=== PATIENT | female | born 1955 | race American Indian/Alaskan Native ===

== ENCOUNTER 2017-07-08 18:08 | Emergency (ER) | payer OTHER ==
[~2017-07-08] VITALS: Ht 157.5 cm; Wt 99.3 kg
[2017-07-08] MEDS ORDERED: CHANTIX1 MG PO (18:33)
[2017-07-08] MEDS ORDERED: LEVOTHYROXINE175 MCG PO (18:34)
[2017-07-08] MEDS ORDERED: CITALOPRAM HBR40 MG PO (18:34)
[2017-07-08] MEDS ORDERED: CYCLOBENZAPRINE10 MG PO ×2 (18:34→19:26)
[2017-07-08] MEDS ORDERED: NAPROSYN500 MG PO (19:26)
== END 2017-07-08 19:40 | disposition home or self-care (01) ==
LOC: ED 18:08
DX: M54.5 Low back pain (principal); F17.200 Nicotine dependence, unspecified, uncomplicated; E03.9 Hypothyroidism, unspecified; J44.9 Chronic obstructive pulmonary disease, unspecified; Z91.038 Other insect allergy status; Z79.899 Other long term (current) drug therapy; Z98.890 Other specified postprocedural states
CPT/HCPCS: 96372; 99283; J1885

== ENCOUNTER 2019-11-27 20:58 | Emergency (ER) | payer MEDICARE, OTHER, MEDICAID ==
[~2019-11-27] VITALS: Ht 157.5 cm; Wt 99.3 kg
[~2019-11-27 20:58] MED LIST: CHANTIX1 MG PO; CITALOPRAM HBR40 MG PO; CLARITIN10 M2 PO; CYCLOBENZAPRINE10 MG PO; FEXOFENADINE H180 MG PO; FUROSEMIDE20 MG PO; IBUPROFEN800 MG PO; LEVOTHYROXINE175 MCG PO; NAPROSYN500 MG PO; PROAIR RESPICL90 MCG INH; VITAMIN D31000 UNI1 PO
[2019-11-27] MEDS ORDERED: WELLBUTRIN SR100 MG PO (21:14)
== END 2019-11-27 21:37 | disposition home or self-care (01) ==
LOC: ED 20:58
DX: S93.601A Unspecified sprain of right foot, initial encounter (principal); E03.9 Hypothyroidism, unspecified; J44.9 Chronic obstructive pulmonary disease, unspecified; F17.200 Nicotine dependence, unspecified, uncomplicated; Z91.030 Bee allergy status; Z79.899 Other long term (current) drug therapy; W22.8XXA Striking against or struck by other objects, initial encounter
CPT/HCPCS: 73630; 99283-25

== ENCOUNTER 2023-03-24 12:30 | Emergency (ER) | payer MEDICARE, OTHER ==
[~2023-03-24] VITALS: Ht 157.5 cm; Wt 90.7 kg
[~2023-03-24 12:30] MED LIST changes: +WELLBUTRIN SR100 MG PO
[2023-03-24] MEDS ORDERED: HYDROCODON-ACE1 EA10 PO (18:56)
[2023-03-24] MEDS ORDERED: NEOMYCIN-POLYMY10 M1 OTIC (18:56)
[2023-03-24 19:02] VITALS: BP 153/74
== END 2023-03-24 19:02 | disposition home or self-care (01) ==
LOC: ED 12:30
DX: H60.91 Unspecified otitis externa, right ear (principal); J44.9 Chronic obstructive pulmonary disease, unspecified; E03.9 Hypothyroidism, unspecified; F17.200 Nicotine dependence, unspecified, uncomplicated; Z91.030 Bee allergy status; Z79.899 Other long term (current) drug therapy
CPT/HCPCS: 99282; 99406

== ENCOUNTER 2023-08-29 08:50 | Day surgery (SDC) | payer MEDICARE, OTHER, MEDICAID ==
[2023-08-28 13:54] VITALS: BP 1436/86
[~2023-08-29] VITALS: Ht 157.5 cm; Wt 99.0 kg
[~2023-08-29 08:50] MED LIST changes: +ATORVASTATIN CA20 MG PO; +HYDROCODON-ACE1 EA10 PO; +LEVOTHYROXINE200 MC2 PO; +LISINOPRIL10 MG PO; +MULTI VITAMIN1 EACH PO; +NEOMYCIN-POLYMY10 M1 OTIC; +SPIRIVA RESPIMAT4 G1 INH
[2023-08-29 09:11] VITALS: BP 158/79
[2023-08-29] MEDS ORDERED: CYCLOBENZAPRINE10 MG PO (09:16)
--- NOTE | 2023-08-29 12:40 | NUR ---
08/29/23 1240 Amparo Lo 1211- PT ARRIVES TO PACU, ALERT BUT DROWSY SITTING IN SEMI MENDIOLA POSITION. INITIALLY PT O2 SATS 85% ON ROOM AIR, PT NORMALLY ON2L O2 AT NIGHT, PLACED 2L O2 PER NC AND PT SATS INCREASED TO LOW 90'S. GAUZE AND TAPE TO RIGHT CLAVICLE SURGICAL SITE, CDI, MELANI DRAIN IN PLACE WITH SANGINOUS DRAINAGE. ALL MONITORS IN PLACE. 1215- CONTINUE TO MONITOR PT, RESTING INTERMITTENTLY. PT ASKING FOR WATER, TOLERATING WELL. PT DENIES PAIN AND NAUSEA. 1225- PT CONTINUES TO HAVE NO COMPLAINTS. ICE PLACED TO SURERY SITE. PT RESTING INTERMITTENTLY. SNORES WHEN FALLS ASLEEP, PT WAKES SELF. 1239- PT CONTINUES TO REST, NO SIGNS OF DISTRESS. GOWN CHANGED DUE TO BLOOD FROM OR.
[2023-08-29 13:13] VITALS: BP 146/65
--- NOTE | 2023-08-29 13:17 | NUR ---
LE 1310 PATIENT BACK TO ROOM 2. VITAL SIGNS COMPLETE. PATIENT DROWSY WITH CPAP ON. ORIENTED. BREATHING EQUAL AND UNLABORED WITH OXYGEN SATURATIONS ABOVE 90%. PATIENT DENIES PAIN AT THIS TIME. PATIENT DENIES BEING NAUSEATED. PATIENT SURGICAL SITE CLEAN, DRY AND INTACT. IVF INFUSING. SCD'S ON. PATIENT DRINKING WATER. CALL LIGHT WITHIN REACH NO FUTHER NEEDS. NO QUESTIONS AT THIS TIME.
[2023-08-29 14:09] VITALS: BP 125/64
--- NOTE | 2023-08-29 14:39 | NUR ---
LE 1345 PATIENT TITRATED OFF THE CPAP. PATIENT DROWSY BUT ORIENTED. PATIENT BREATHING EQUAL AND UNLABORED. OXYGEN SATURATIONS ABOVE 90%. PATIENT DENIES ANY PAIN OR BEING NAUSEATED. PATIENT SURGICAL SITE CLEAN, DRY AND INTACT. IVF INFUSING. SCD'S ON. PATIENT DRINKING WATER AND EATING JELLO. CALL LIGHT WITHIN REACH NO FUTHER NEEDS. NO QUESITIONS AT THIS TIME. LE 1410 PATIENT ALERT AND ORIENTED. BREATHING EQUAL AND UNLABORED. OXYGEN SATURATIONS ABOVE 90% ON ROOM AIR. PATIENT DENIES PAIN OR BEING NAUSEATED. SURGICAL CLEAN, DRY AND INTACT. LE 1430 PATIENT HAS MET DISCHARGE CRITERIA. PATIENT GIVEN DISCHARGE INSTRUCTIONS. NO QUESTIONS AT THIS TIME. PATIENT IV D/C'D WNL. PATIENT WAS WHEELED OUT OF FACILITY NO FUTHER NEEDS.
--- NOTE | 2023-08-29 15:55 | OR ---
[facility] [address] [place], [place] [address] Signed DATE OF OPERATION: 08/29/2023 SURGEON: Suzan Ch MD PREOPERATIVE DIAGNOSIS: Right midclavicular subcutaneous mass (12 x 12 cm). POSTOPERATIVE DIAGNOSIS: Right midclavicular subcutaneous mass (12 x 12 cm). PROCEDURE: Excision of right midclavicular subcutaneous mass (lipoma). ESTIMATED BLOOD LOSS: 10 mL. INDICATIONS: Prem is a 68-year-old obese female, who has a persistent subcutaneous mass over the mid right clavicle. We saw her in August 2015 for the same mass. At that time, we estimated the mass at about 10 to 15 cm. She thinks it has been getting larger. She decided she wanted to have it removed. She has a fear of going to sleep. She told me she was asleep for her bilateral wrist fractures in her 60s and also after her knee replacement in her 50s and was very difficult to wake up. She ended up in the hospital for several days. It sounds like she had some pulmonary issues. Consequently she was asking if we could do this under straight local. That is a bit difficult particularly due to its size. I told her it would be better at least to have monitored anesthesia care with the local throughout the procedure. I explained to her that most likely this is a lipoma. We would take a fairly respectable incision to get it out completely. We will send it off to the lab for definitive diagnosis. She understands there is risk to the surgery including, but not limited to bleeding, infection, scarring, change in contour of the skin as well as recurrent lipomas in the same or other locations. She had expressed understanding and wished to proceed. DESCRIPTION OF PROCEDURE: I met with Prem and her daughter in our preop area. We all agreed and marked the lesion appropriately. It is quite obvious. After this, she was taken in the operating room and placed in the supine position under monitored anesthesia care. We then rotated her into the reverse Trendelenburg position. She was given preoperative antibiotics along with subcutaneous heparin. SCDs were utilized. She was prepped and draped in the usual sterile fashion. We then used our 3.5 inch spinal needle to inject lidocaine Electronically Signed By: SUZAN CH MD 08/29/23 1555 PATIENT NAME: PREM LUCIA OPERATIVE REPORT DATE OF : 53 REPORT #: [id number] PHYSICIAN: SUZAN CH MD PCP: AMARILYS FLETCHER REPORT IS CONFIDENTIAL AND NOT TO BE RELEASED WITHOUT AUTHORIZATION [facility] [address], [place] [address] Signed mixed with bupivacaine and epinephrine throughout the skin overlying the area. We then injected some around the circumference as well. We used a hockey stick type incision where we followed the oblique incision down the length of the clavicle and then down towards the shoulder just the short distance maybe 2.5 cm. This was developed very carefully with the help of our cautery. We had an additional nurse scrub in to help hold the skin flaps up. We had to inject some additional local as we came underneath and across the pectoralis major muscle. We also came right across the clavicle. It did extend up into the supraclavicular fossa just a short distance. In this way, the entire specimen was removed en bloc and passed off the field. Final specimen is larger than 12 cm. Unfortunately, we forgot to measure it until after it was in the formalin. We will look at that measurement from our pathology department. The wound was then irrigated and suctioned out until clear. We used a #7 flat Daniel drain and we brought it out through the lateral chest wall skin and up into the operative field. We then held in place at the skin level with a 2-0 nylon suture. The dermis was then reapproximated with interrupted 3-0 subcuticular Monocryl sutures. The skin edges were reapproximated with a running 5-0 fast absorbing plain gut suture. Dry gauze and tape was then applied. After this, Prem was transferred over to her hospital bed and taken into recovery room in stable condition. She tolerated the procedure quite well. Suzan Ch MD ALB/MODL /[id number] cc: MD Amarilys Viera Copies: SUZAN CH MD, ELIZABETH ~ Electronically Signed By: SUZAN CH MD 08/29/23 1555 PATIENT NAME: PREM LUCIA OPERATIVE REPORT DATE OF : 53 REPORT #: [id number] PHYSICIAN: SUZAN CH MD PCP: AMARILYS FLETCHER REPORT IS CONFIDENTIAL AND NOT TO BE RELEASED WITHOUT AUTHORIZATION
--- NOTE | 2023-09-03 16:10 | PATH ---
[facility] [address] [facility] [place], [place] [address] Signed SPECIMEN(S): A MID RIGHT CLAVICLE SPECIMEN SOURCE: A. MID RIGHT CLAVICLE CLINICAL HISTORY: Subcutaneous mass FINAL PATHOLOGIC DIAGNOSIS: Mid right clavicle: - Telephone lobulated adipose tissue consistent with lipoma. COMMENT: An MDM2 immunostain is performed with appropriate controls on block (A3) and is negative in the cells of concern, supporting the diagnosis. JR:sowmya MICROSCOPIC EXAMINATION: Histologic sections of all submitted blocks are examined by light microscopy. These findings, together with the gross examination, support the pathologic diagnosis. GROSS DESCRIPTION: The specimen, labeled and designated "Lucia, A" and designated on the requisition "mid right clavicle," is received in formalin and consists of fragmented portion yellow-reid lobulated fatty tissue (15.0 x 10.0 x 5.4 cm). The specimen is inked blue and serially sectioned to reveal yellow-reid lobulated fatty cut surfaces. Coach Driver sections are submitted in cassette A1-A5. AC (under the direct supervision of a pathologist) The Gross Description was prepared using a voice recognition system. The report was reviewed for accuracy; however, sound-alike word errors, addition and/or deletions may occur. If there is any question about this report, please contact Client Services. PERFORMING LABORATORY: Technical component was performed by [facility], [address] [place] [id number] (CLIA# [id number]). Professional interpretation was performed by [facility], [address] [place] [address], [place] [address] (CLIA#: [id number]). PATIENT NAME: PREM LUCIA PATHOLOGY DATE OF : 53 REPORT #: [id number] PHYSICIAN: [facility] PCP: GEOVANNY FLETCHER REPORT IS CONFIDENTIAL AND NOT TO BE RELEASED WITHOUT AUTHORIZATION [address] [address] Signed Diagnostician: Lencho Leonard MD Pathologist Electronically Signed 09/03/2023 Copies: ~ PATIENT NAME: PREM LUCIA PATHOLOGY DATE OF : 53 REPORT #: [id number] PHYSICIAN: [facility] PCP: GEOVANNY FLETCHER REPORT IS CONFIDENTIAL AND NOT TO BE RELEASED WITHOUT AUTHORIZATION
== END 2023-08-29 14:30 | disposition home or self-care (01) ==
LOC: DS 08:50
PROVIDERS: ATTEND Colon & Rectal Surgery
PROC: 0JB40ZZ Excision of Right Neck Subcutaneous Tissue and Fascia, Open Approach (ICD-10-PCS; principal; 2023-08-29 10:25)
DX: R22.1 Localized swelling, mass and lump, neck (principal); G47.33 Obstructive sleep apnea (adult) (pediatric); E66.9 Obesity, unspecified; Z68.38 Body mass index [BMI] 38.0-38.9, adult
CPT/HCPCS: 00400; 88304; 88305; 88342; J0131; J0690; J1644; J2001; J2250; J2704; J3010; J3490; J7121